=== PATIENT | male | born 1990 | race African-American/Black ===

== ENCOUNTER 2024-10-12 09:12 | Emergency (ER) | payer MEDICAID ==
[~2024-10-12] VITALS: Ht 180.3 cm; Wt 108.0 kg
[2024-10-12 09:20] VITALS: O2SAT 100
[2024-10-12] MEDS ORDERED: IBUP-2029 MT (10:36)
[2024-10-12 11:06] VITALS: BP 150/82; PULSE 72; RESP 18; TEMP 36.9; O2SAT 100
[2024-10-12] MEDS: IBUPROFEN 600MG TABLET PO NR (11:22)
[2024-10-12] MEDS: HYDROCODONE/ACETAMINOPHEN 10/325MG TABLET PO NR (11:23)
== END 2024-10-12 11:23 | disposition home or self-care (01) ==
LOC: ER 09:30
DX: F10.90 Alcohol use, unspecified, uncomplicated (principal); F12.90 Cannabis use, unspecified, uncomplicated; S92.311A Displaced fracture of first metatarsal bone, right foot, initial encounter for closed fracture; X58.XXXA Exposure to other specified factors, initial encounter; Y93.89 Activity, other specified; Y92.89 Other specified places as the place of occurrence of the external cause; Y99.8 Other external cause status
CPT/HCPCS: 73660; 99283

== ENCOUNTER 2024-11-24 10:52 | Emergency (ER) | payer MEDICAID ==
[~2024-11-24] VITALS: Ht 180.3 cm; Wt 105.0 kg
[~2024-11-24 10:52] MED LIST: IBUP-2029 MT
[2024-11-24 11:20] VITALS: O2SAT 97
[2024-11-24] MEDS ORDERED: AMOX600S39 MT (14:08)
[2024-11-24] MEDS ORDERED: IBUP-1525 MT (14:08)
[2024-11-24] MEDS: TETANUS, DIPHTHERIA, PERTUSSIS VAC/PF 0.5ML (>10YR OLD) IM ONE (15:00)
[2024-11-24] MEDS: ACETAMINOPHEN 325MG TABLET PO ONE (15:01)
[2024-11-24 15:12] VITALS: BP 156/109; PULSE 71; RESP 16; TEMP 36.8; O2SAT 98
== END 2024-11-24 15:13 | disposition home or self-care (01) ==
LOC: ER 10:52
DX: S00.81XA Abrasion of other part of head, initial encounter (principal); F12.90 Cannabis use, unspecified, uncomplicated; Z79.899 Other long term (current) drug therapy; W54.0XXA Bitten by dog, initial encounter; Y93.89 Activity, other specified; Y92.89 Other specified places as the place of occurrence of the external cause; Y99.8 Other external cause status
CPT/HCPCS: 90471; 90715; 99283